=== PATIENT | female | born 1960 | race African-American/Black ===

== ENCOUNTER → 2021-02-15 | Day surgery (SDC) | payer OTHER ==
[2021-02-15 08:36] VITALS: BMI 35.4
[2021-02-15 09:25] VITALS: TEMP 97.5
[2021-02-15 10:22] VITALS: BP 106/59; PULSE 58
== END | disposition home or self-care (01) ==
LOC: JASU-ENDO 05:19
PROVIDERS: ATTEND Internal Medicine Gastroenterology
PROC: 0DJD8ZZ Inspection of Lower Intestinal Tract, Via Natural or Artificial Opening Endoscopic (ICD-10-PCS; principal; 2021-02-15 09:00)
DX: Z12.11 Encounter for screening for malignant neoplasm of colon (principal); K57.30 Diverticulosis of large intestine without perforation or abscess without bleeding; K59.04 Chronic idiopathic constipation